=== PATIENT | female | born 1930 | race Caucasian/White ===

== ENCOUNTER → 2016-07-15 | Outpatient (CLI) | payer MEDICARE, OTHER ==
[2016-07-15 16:02] LABS: HEMATOCRIT 31.1 % (36.0-47.0); HEMOGLOBIN 10.2 g/dL (12.0-15.5); HGB HCT DIFFERENCE -0.5; MEAN CORPUSCULAR HEMOGLOBIN 29.9 pg (27.0-33.4); MEAN CORPUSCULAR HGB CONC 32.8 g/dL (32.0-36.0); MEAN CORPUSCULAR VOLUME 91 fl (80-97); RED BLOOD COUNT 3.42 10^6/uL (3.72-5.28); RED CELL DISTRIBUTION WIDTH 14.7 % (11.5-14.0); WHITE BLOOD COUNT 5.7 10^3/uL (4.0-10.5)
[2016-07-15 16:09] LABS: APPEARANCE,URINE SLIGHTLY-CLOUDY; BILIRUBIN,URINE NEGATIVE (NEGATIVE); GLUCOSE, URINE 50 mg/dL (NEGATIVE); KETONES,URINE NEGATIVE (NEGATIVE); LEUKOCYTE ESTERASE,URINE SMALL (NEGATIVE); NITRITE,URINE NEGATIVE (NEGATIVE); PROTEIN,URINE NEGATIVE (NEGATIVE); URINE SPECIFIC GRAVITY 1.017; UROBILINOGEN,URINE NEGATIVE mg/dL (<2.0)
[2016-07-15 16:29] LABS: ANION GAP 12 (5-19); BLOOD UREA NITROGEN 57 mg/dL (7-20); CALCIUM 9.2 mg/dL (8.4-10.2); CARBON DIOXIDE 28 mmol/L (22-30); CHLORIDE 98 mmol/L (98-107); CREATININE RESULT 1.72 mg/dL (0.52-1.25); GLUCOSE 141 mg/dL (75-110); PHOSPHORUS 3.6 mg/dL (2.5-4.5); POTASSIUM 4.6 mmol/L (3.6-5.0); SODIUM 137.9 mmol/L (137-145)
== END ==
LOC: OD 14:17
PROVIDERS: ATTEND Internal Medicine Nephrology
DX: N18.4 Chronic kidney disease, stage 4 (severe) (principal); E11.9 Type 2 diabetes mellitus without complications; D64.9 Anemia, unspecified; E87.5 Hyperkalemia; N39.0 Urinary tract infection, site not specified
CPT/HCPCS: 36415; 80048; 81001; 83970; 84100; 85027; 87086; 87088; 87186

== ENCOUNTER 2016-07-31 13:59 | Emergency (ER) | payer MEDICARE, OTHER ==
--- NOTE | 2016-07-31 14:49 | ER Document Report ---
ED Medical Screen (RME) - General Stated Complaint: KIDNEY PROBLEM Notes: dr jara referred over for abnormal lab values Dr. lund is nephro CKD stage 3, not on HD I have greeted and performed a rapid initial assessment of this patient. A comprehensive ED assessment and evaluation of the patient, analysis of test results and completion of the medical decision making process will be conducted by additional ED providers. TRAVEL OUTSIDE OF THE [place] IN LAST 30 DAYS: No - Related Data Allergies/Adverse Reactions: oxycodone HCl [From Percocet] Adverse Reaction (Mild, Verified 07/31/16 14:48) Vomiting propoxyphene napsylate [From Darvocet-N 100] Adverse Reaction (Mild, Verified 14:48) Vomiting Past Medical History - Past Medical History Cardiac Medical History: Reports: Hx Atrial Fibrillation, Hx Congestive Heart Failure, Hx Hypercholesterolemia, Hx Hypertension Pulmonary Medical History: Denies: Hx Tuberculosis Endocrine Medical History: Reports: Hx Diabetes Mellitus Type 2 Renal/ Medical History: Reports: Hx Renal Insufficiency Malignancy Medical History: Reports: Hx Breast Cancer GI Medical History: Reports: Hx Ulcer - peptic ulcer, had surgery Psychiatric Medical History: Denies: Hx Depression Past Surgical History: Reports: Hx Abdominal Surgery - Surgery for peptic ulcer disease, Hx Breast Surgery - left lumpectomy, Hx Hysterectomy, Hx Lumpectomy. Denies: Hx Mastectomy - Lymph nodes removed - Immunizations Hx Diphtheria, Pertussis, Tetanus Vaccination: Yes
--- NOTE | 2016-07-31 16:04 | EKG REPORT ---
SEVERITY:- ABNORMAL ECG - SINUS OR ECTOPIC ATRIAL RHYTHM LEFT AXIS DEVIATION LEFT VENTRICULAR HYPERTROPHY : Confirmed by: Mel Bhat 31-Jul-2016 16:03:18
[2016-07-31 16:47] LABS: ABSOLUTE LYMPHOCYTES (AUTO) 2.2 10^3/uL (0.5-4.7); ABSOLUTE MONOCYTES (AUTO) 0.5 10^3/uL (0.1-1.4); ABSOLUTE NEUT (AUTO) 3.8 10^3/uL (1.7-8.2); BASOPHILS % (AUTO) 0.4 % (0-2); EOSINOPHILS % (AUTO) 0.5 % (0-6); HEMATOCRIT 30.5 % (36.0-47.0); HEMOGLOBIN 10.2 g/dL (12.0-15.5); HGB HCT DIFFERENCE 0.1; MEAN CORPUSCULAR HEMOGLOBIN 29.9 pg (27.0-33.4); MEAN CORPUSCULAR HGB CONC 33.4 g/dL (32.0-36.0); MEAN CORPUSCULAR VOLUME 90 fl (80-97); MONOCYTES % (AUTO) 7.9 % (3-13); RED CELL DISTRIBUTION WIDTH 13.6 % (11.5-14.0); SEGMENTED NEUTROPHILS % (AUTO) 57.2 % (42-78); WHITE BLOOD COUNT 6.6 10^3/uL (4.0-10.5)
[2016-07-31 17:00] LABS: PROTHROMBIN TIME 26.6 SEC (11.4-15.4)
[2016-07-31 17:03] LABS: ALANINE AMINOTRANSFERASE 17 U/L (9-52); ALBUMIN 4.3 g/dL (3.5-5.0); ALKALINE PHOSPHATASE 86 U/L (38-126); ANION GAP 16 (5-19); ASPARTATE AMINO TRANSFERASE 26 U/L (14-36); BILIRUBIN,TOTAL 0.6 mg/dL (0.2-1.3); CALCIUM 9.4 mg/dL (8.4-10.2); CARBON DIOXIDE 26 mmol/L (22-30); CHLORIDE 95 mmol/L (98-107); CREATININE RESULT 2.92 mg/dL (0.52-1.25); GLUCOSE 130 mg/dL (75-110); POTASSIUM 5.5 mmol/L (3.6-5.0); SODIUM 136.7 mmol/L (137-145); TOTAL PROTEIN 7.1 g/dL (6.3-8.2)
[2016-07-31 17:10] LABS: BLOOD UREA NITROGEN 120 mg/dL (7-20)
[2016-07-31 17:54] LABS: ADD ON TESTING BLD IN LAB ACKNOWLEDGE
[2016-07-31 18:04] LABS: CREATINE KINASE 69 U/L (30-135); MAGNESIUM 2.1 mg/dL (1.6-2.3)
--- NOTE | 2016-07-31 18:08 | ER Document Report ---
ED General - General Mode of Arrival: Ambulatory Information source: Patient, Relative TRAVEL OUTSIDE OF THE [place] IN LAST 30 DAYS: No - HPI Patient complains to provider of: abnormal lab results Associated symptoms: Other - See above <WYATT ODELL - Last Filed: 07/31/16 18:08> <ANAIS GARCIA - Last Filed: 07/31/16 19:58> - General Chief Complaint: Abnormal Lab Results Stated Complaint: abnormal lab results Notes: Patient is an 86 year old female, with a past medical history including stage 3 kidney disease and CHF, who presents to the emergency department for abnormal lab results. Patient reports she had some blood work done yesterday by Dr. Hernandez and received a call today to come into the ED. Patient reports she has not felt well for a while and complains of pain in her legs due to edema which has not decreased even when her Lasix was increased from 2x/day to 3x/day on by Dr. Rivas. On 07/15 her BUN and creatinine were below her baseline which is molst likely the reason her Lasix was increased. The worst her levels were in the past year was Creatinine of 3.0 and BUN of 106. Patient states that her Gabapentin was also increased from 300mg 3x/day to 600mg 3x/day yesterday. ( WYATT ODELL) The patient's case was discussed with Dr. Michael Rivas. She has severe aortic stenosis with prerenal problem due to poor cardiac pump function. She has not been as compliant on sodium intake as he would like. He feels the gabapentin though she had been receiving is much too high and doubling it yesterday was not in her best interest. He prefers that she reduce the gabapentin to 300 mg daily at bedtime total dose. He also requests that I give her an IV Lasix dose to 40 mg now and Kayexalate for her potassium of 5.5. Her BUN of 128 and creatinine 2.92 are not that far from previous labs in this past year. She has had a BUN of 106 on 2 different occasions and a creatinine of 3.0 on 1 occasion and 2.8 on another occasion. We also discussed a support hose and he believes this will be of benefit to her. They stated the only thing that will really help her swelling is dialysis, but there is considerable risk and dropping her blood pressure during dialysis due to her up for cardiac pump function. He is willing to meet with her next week to discuss these options and what she should expect with or without the dialysis. Talk with the family for some time about these issues and options. I also explained why support hose may be quite helpful for her and by reducing some of the edema may improve the pain she is having in her feet and ankles. I later had a long talk with the patient about potassium, it turns out she eats bananas from time to time, and drinks orange juice. She advised to discontinue that and have someone look up on the Internet what foods and fluids have a high potassium and to avoid those. (ANAIS GARCIA) - Related Data Allergies/Adverse Reactions: oxycodone HCl [From Percocet] Adverse Reaction (Mild, Verified 07/31/16 14:48) Vomiting propoxyphene napsylate [From Darvocet-N 100] Adverse Reaction (Mild, Verified 14:48) Vomiting Past Medical History - General Information source: Patient - Social History Smoking Status: Never Smoker Chew tobacco use (# tins/day): No Frequency of alcohol use: None Drug Abuse: None Family History: None, Malignancy - Sister with ovarian cancer Patient has suicidal ideation: No Patient has homicidal ideation: No - Past Medical History Cardiac Medical History: Reports: Hx Atrial Fibrillation, Hx Congestive Heart Failure, Hx Hypercholesterolemia, Hx Hypertension Endocrine Medical History: Reports: Hx Diabetes Mellitus Type 2 Renal/ Medical History: Reports: Hx Renal Insufficiency Malignancy Medical History: Reports: Hx Breast Cancer GI Medical History: Reports: Hx Ulcer - peptic ulcer, had surgery Past Surgical History: Reports: Hx Abdominal Surgery - Surgery for peptic ulcer disease, Hx Breast Surgery - left lumpectomy, Hx Hysterectomy, Hx Lumpectomy - Immunizations Hx Diphtheria, Pertussis, Tetanus Vaccination: Yes Hx Pneumococcal Vaccination: 05/04/14 <WYATT ODELL - Last Filed: 07/31/16 18:08> Review of Systems - Review of Systems Constitutional: No symptoms reported EENT: No symptoms reported Cardiovascular: No symptoms reported Respiratory: No symptoms reported Gastrointestinal: No symptoms reported Genitourinary: No symptoms reported Female Genitourinary: No symptoms reported Musculoskeletal: See HPI, Leg swelling, Ankle swelling Skin: No symptoms reported Hematologic/Lymphatic: No symptoms reported Neurological/Psychological: No symptoms reported -: Yes All other systems reviewed and negative <WYATT ODELL - Last Filed: 07/31/16 18:08> Physical Exam - Vital signs Interpretation: Normal - General General appearance: Appears well, Alert - HEENT Head: Normocephalic, Atraumatic - Respiratory Respiratory status: No respiratory distress Chest status: Nontender Breath sounds: Normal Chest palpation: Normal - Cardiovascular Rhythm: Regular Murmur: Yes - loud, systolic - Abdominal Inspection: Obese Distension: No distension Bowel sounds: Normal Tenderness: Nontender Organomegaly: No organomegaly - Extremities General upper extremity: Normal inspection General lower extremity: Edema - Pitting edema bilaterally, brawny induration, skin is thickening around ankles from chronic edema - Neurological Neuro grossly intact: Yes Cognition: Normal Orientation: AAOx4 [place]orne Coma Scale Eye Opening: Spontaneous Curtis Coma Scale Verbal: Oriented Curtis Coma Scale Motor: Obeys Commands [place] Coma Scale Total: 15 Speech: Normal - Psychological Associated symptoms: Normal affect, Normal mood - Skin Skin Temperature: Warm Skin Moisture: Dry Skin Color: Normal <WYATT DOELL - Last Filed: 07/31/16 18:08> Course - Laboratory Result Diagrams: 07/31/16 16:15 07/31/16 16:15 <WYATT ODELL - Last Filed: 07/31/16 18:08> - Laboratory Result Diagrams: 07/31/16 16:15 07/31/16 16:15 - Diagnostic Test Radiology reviewed: Image reviewed, Reports reviewed - Chest x-ray shows stable cardiomegaly with no vascular congestion. - EKG Interpretation by [facility] EKG shows normal: Sinus rhythm, Intervals, ST-T Waves. abnormal: [place], QRS Complexes Rate: Normal - 64 Rhythm: Other - Sinus or ectopic atrial rhythm [place]/QRS: Left axis deviation Voltage: Consistant with LVH When compared to previous EKG there are: No significant change <ANAIS GARCIA - Last Filed: 07/31/16 19:58> - Vital Signs Vital signs: Temp Pulse Resp BP Pulse Ox 97.5 F 63 20 121/76 96 07/31/16 14:48 07/31/16 14:48 07/31/16 14:48 07/31/16 14:48 07/31/16 14:48 (WYATT ODELL) (ANAIS GARCIA) - Laboratory Laboratory results interpreted by me: 07/31/16 07/31/16 07/31/16 16:15 16:15 16:15 RBC 3.40 L Hgb 10.2 L Hct 30.5 L PT 26.6 H Sodium 136.7 L Potassium 5.5 H Chloride 95 L BUN 120 H Creatinine 2.92 H Est GFR ( Amer) 19 L Est GFR (Non-Af Amer) 15 L Glucose 130 H NT-Pro-B Natriuret Pep Urine Glucose (UA) 07/31/16 07/31/16 16:15 19:00 RBC Hgb Hct PT Sodium Potassium Chloride BUN Creatinine Est GFR ( Amer) Est GFR (Non-Af Amer) Glucose NT-Pro-B Natriuret Pep 5010 H Urine Glucose (UA) 50 H (WYATT ODELL) (ANAIS GARCIA) Discharge <WYATT ODELL - Last Filed: 07/31/16 18:08> <ANAIS GARCIA - Last Filed: 07/31/16 19:58> - Discharge Clinical Impression: Chronic renal failure, stage 4 (severe), Peripheral edema, Hyperkalemia, Aortic stenosis, severe Condition: Stable Disposition: HOME, SELF-CARE Additional Instructions: Dr. Rivas advised the following instructions: (1) Continue the Lasix dose he increased you to recently. (2) Reduce your gabapentin dose to 300 mg at bedtime only. (3) Wear support/compression stockings. (4) Elevate your legs all the time. (5) Avoid potassium in your diet. (6) Follow-up with Dr. Rivas next 08/06/2016 to discuss the treatment options that are available for your condition. (7) Follow up with Dr. Hernandez to repeat your serum chemistries Wednesday or Wednesday. RETURN TO THE EMERGENCY ROOM IF ANY NEW OR WORSENING SYMPTOMS. Referrals: FATIMAH RIVAS MD [ACTIVE STAFF] - 08/06/16 ASIYA HERNANDEZ MD [Primary Care Provider] - 08/03/16 Scribe Attestation: 07/31/16 19:57 I personally performed the services described in the documentation, reviewed and edited the documentation which was dictated to the scribe in my presence, and it accurately records my words and actions. (ANAIS GARCIA) Scribe Documentation - Scribe Written by Mikel:: mikel Lopez, 07/31/[id number] acting as scribe for :: Kyle <WYATT ODELL - Last Filed: 07/31/16 18:08>
[2016-07-31 18:16] LABS: CREATINE KINASE MB 1.35 ng/mL (<4.55)
[2016-07-31] MEDS ORDERED: FUROSEMIDE INJ/PF 40 MG/4 ML SDV IV ONE (18:22)
[2016-07-31] MEDS ORDERED: SODIUM POLYSTYRENE SULFONATE 15 GM/60 ML PO ONE (18:22)
[2016-07-31 18:24] LABS: TROPONIN I 0.193 ng/mL
[2016-07-31 19:25] LABS: APPEARANCE,URINE CLEAR; BILIRUBIN,URINE NEGATIVE (NEGATIVE); GLUCOSE, URINE 50 mg/dL (NEGATIVE); KETONES,URINE NEGATIVE (NEGATIVE); LEUKOCYTE ESTERASE,URINE NEGATIVE (NEGATIVE); NITRITE,URINE NEGATIVE (NEGATIVE); PROTEIN,URINE NEGATIVE (NEGATIVE); URINE SPECIFIC GRAVITY 1.009; UROBILINOGEN,URINE NEGATIVE mg/dL (<2.0)
[2016-07-31 20:40] VITALS: BP 155/77
== END 2016-07-31 20:40 | disposition home or self-care (01) ==
LOC: ER 13:59
DX: N18.4 Chronic kidney disease, stage 4 (severe) (principal); R60.9 Edema, unspecified; E87.5 Hyperkalemia; I35.0 Nonrheumatic aortic (valve) stenosis; E66.9 Obesity, unspecified; I13.0 Hypertensive heart and chronic kidney disease with heart failure and stage 1 through stage 4 chronic kidney disease, or unspecified chronic kidney disease; E11.22 Type 2 diabetes mellitus with diabetic chronic kidney disease; I50.9 Heart failure, unspecified; E78.00 Pure hypercholesterolemia, unspecified; I48.91 Unspecified atrial fibrillation; Z85.3 Personal history of malignant neoplasm of breast; Z90.710 Acquired absence of both cervix and uterus
CPT/HCPCS: 93005; 99284; 96374; 36415; 82553; 82550; 83735; 85025; 85610; 80053; 81001; 84484; 83880; 71010; 93010; J1940

== ENCOUNTER → 2016-08-05 | Outpatient (CLI) | payer MEDICARE, OTHER ==
[2016-08-05 12:03] LABS: HEMATOCRIT 28.7 % (36.0-47.0); HEMOGLOBIN 9.6 g/dL (12.0-15.5); HGB HCT DIFFERENCE 0.1; MEAN CORPUSCULAR HEMOGLOBIN 29.9 pg (27.0-33.4); MEAN CORPUSCULAR HGB CONC 33.3 g/dL (32.0-36.0); MEAN CORPUSCULAR VOLUME 90 fl (80-97); RED CELL DISTRIBUTION WIDTH 13.2 % (11.5-14.0); WHITE BLOOD COUNT 6.2 10^3/uL (4.0-10.5)
[2016-08-05 12:32] LABS: ANION GAP 17 (5-19); CALCIUM 9.4 mg/dL (8.4-10.2); CARBON DIOXIDE 24 mmol/L (22-30); CHLORIDE 97 mmol/L (98-107); CREATININE RESULT 2.58 mg/dL (0.52-1.25); GLUCOSE 367 mg/dL (75-110); POTASSIUM 4.8 mmol/L (3.6-5.0); SODIUM 137.9 mmol/L (137-145)
[2016-08-05 12:51] LABS: BLOOD UREA NITROGEN 124 mg/dL (7-20)
== END ==
LOC: OD 11:27
PROVIDERS: ATTEND Internal Medicine Nephrology
DX: I12.9 Hypertensive chronic kidney disease with stage 1 through stage 4 chronic kidney disease, or unspecified chronic kidney disease (principal); N18.3 Chronic kidney disease, stage 3 (moderate); E87.5 Hyperkalemia; I50.9 Heart failure, unspecified; E11.9 Type 2 diabetes mellitus without complications
CPT/HCPCS: 36415; 80048; 85027